=== PATIENT | female | born 1955 | race Caucasian/White ===

== ENCOUNTER 2017-06-29 12:52 | Emergency (ER) | payer OTHER ==
[~2017-06-29] VITALS: Ht 160 cm; Wt 57.8 kg
[~2017-06-29 12:52] MED LIST: AMITRIPTYLINE H10 MG PO; DAILY VALUE1 EACH PO; LANSOPRAZOLE30 MG PO; LORAZEPAM0.5 MG PO; SALINE MIST45 ML BOTH NARES
[2017-06-29 13:42] LABS: HEMATOCRIT 36.9 % (36.0-46.0); HEMOGLOBIN 12.8 G/DL (11.9-15.5); MCH 30.2 PG (29.0-34.0); MCHC 34.7 G/DL (30.0-36.0); PLATELET COUNT 163 K/uL (156-360); RBC DIS.WIDTH-CV 11.9 % (11.8-14.6); RBC DIS.WIDTH-SD 37.7 % (39-53); RED BLOOD COUNT 4.24 M/uL (3.80-5.20); WHITE BLOOD COUNT 5.3 K/uL (4.1-10.2)
[2017-06-29 13:51] LABS: CHLORIDE 108 mEq/L (99-109); POTASSIUM 3.7 mEq/L (3.7-5.4); SODIUM 142 mEq/L (136-147)
[2017-06-29 13:53] LABS: GLUCOSE 149 mg/dL (70-99)
[2017-06-29 13:57] LABS: CREATININE 0.9 mg/dL (0.6-1.3); GFR ESTIMATE (CALCULATED) > 59 mL/min/
[2017-06-29 13:58] LABS: UREA NITROGEN (BUN) 14 mg/dL (9-23)
[2017-06-29 16:05] VITALS: BP 130/79
== END 2017-06-29 16:05 | disposition home or self-care (01) ==
LOC: EME 12:52
PROVIDERS: Emergency Medicine Emergency Medical Services
DX: R55 Syncope and collapse (principal); R42 Dizziness and giddiness; R53.1 Weakness; R41.82 Altered mental status, unspecified; K21.9 Gastro-esophageal reflux disease without esophagitis; F41.9 Anxiety disorder, unspecified; Z90.49 Acquired absence of other specified parts of digestive tract; Z90.710 Acquired absence of both cervix and uterus; Z88.0 Allergy status to penicillin; Z88.6 Allergy status to analgesic agent; Z88.5 Allergy status to narcotic agent
CPT/HCPCS: 70450; 80048; 85027; 93005; 99281; 99285